=== PATIENT | male | born 1960 | race Asian ===

== ENCOUNTER 2018-03-31 20:25 | Emergency (ER) | payer MEDICARE ==
[~2018-03-31] VITALS: Ht 165.1 cm; Wt 72.1 kg
[2018-03-31 22:22] LABS: BASOPHILS # (AUTO) 0.1 K/uL (0.0-8.0); BASOPHILS % (AUTO) 0.8 % (0.0-2.0); EOSINOPHILS # (AUTO) 0.1 K/uL (0.0-0.7); EOSINOPHILS % (AUTO) 0.7 % (0.0-7.0); HEMATOCRIT 46.9 % (36.7-47.1); HEMOGLOBIN 16.1 g/dL (12.5-16.3); LYMPHOCYTES # (AUTO) 2.2 K/uL (20.0-40.0); LYMPHOCYTES % (AUTO) 24.1 % (20.5-51.5); MEAN CORPUSCULAR HEMOGLOBIN 32.7 uug (23.8-33.4); MEAN CORPUSCULAR HGB CONC 35 g/dL (32.5-36.3); MONOCYTES % (AUTO) 11.3 % (0.0-11.0); NEUTROPHILS # (AUTO) 5.7 K/uL (1.8-8.9); NEUTROPHILS % (AUTO) 63.1 % (38.5-71.5); PLATELET COUNT (AUTO) 170 K/uL (152-348); RED BLOOD CELL COUNT(AUTO) 4.94 MIL/uL (4.06-5.63)
[2018-03-31 22:30] LABS: CARBON DIOXIDE 24 mmol/L (21-32); CHLORIDE 107 mmol/L (98-107); CREATININE 1.3 mg/dL (0.6-1.3); GLUCOSE 131 mg/dL (74-106); POTASSIUM 3.6 mmol/L (3.5-5.1); UREA NITROGEN, BLOOD 20 mg/dL (7-18)
[2018-03-31 22:35] LABS: ALANINE AMINOTRANSFERASE 20 U/L (16-63); ALKALINE PHOSPHATASE 83 U/L (50-136); ASPARTATE AMINOTRANSFERASE 46 U/L (15-37); BILIRUBIN,DIRECT < 0.1 mg/dL (0.0-0.2); BILIRUBIN,TOTAL 0.7 mg/dL (0.2-1.0)
[2018-03-31 22:38] LABS: ETHANOL < 3 MG/DL (0-0)
[2018-03-31 22:56] LABS: ACETAMINOPHEN < 2.0 ug/mL (10-30)
[2018-03-31 23:05] LABS: THYROID STIMULATING HORMONE 4.296 mIU/mL (0.358-3.740)
--- NOTE | 2018-03-31 23:09 | NUR ---
Call placed to EULALIA Pickering, for PET evaluation.
--- NOTE | 2018-04-01 00:24 | NUR ---
EULALIA Pickering, at bedside for evaluation.
[2018-04-01 02:10] LABS: *BILIRUBIN,URIN NEGATIVE (NEGATIVE); *BLOOD, URINE 2+ (NEGATIVE); *COLOR,URINE AMBER (YELLOW); *KETONES,URINE NEGATIVE (NEGATIVE); *PROTEIN,URINE 3+ (NEGATIVE); *UROBILINOGEN,URINE 0.2 E.U./dl (NORMAL); LEUKOCYTE ESTERASE ,URINE NEGATIVE (NEGATIVE); NITRITE, URINE NEGATIVE (NEGATIVE); UGLUCOSE NEGATIVE (NEGATIVE)
[2018-04-01 02:20] LABS: *CLARITY,URINE HAZY (CLEAR)
[2018-04-01 02:23] LABS: BACTERIA,URINE NONE SEEN /HPF (NONE SEEN); MUCUS,URINE FEW /LPF (0-FEW); SQUAMOUS EPITHELIAL CELL,UR MODERATE /HPF (NONE SEEN); WBC,URINE 0-3 /HPF (0-3)
[2018-04-01 02:42] LABS: *AMPHETAMINE, URINE NEGATIVE (NEGATIVE); *BARBITURATE, URINE NEGATIVE (NEGATIVE); *CANNABINOID, URINE NEGATIVE (NEGATIVE); *COCCAINE, URINE NEGATIVE (NEGATIVE); *OPIATE, URINE NEGATIVE (NEGATIVE); *PHENCYCLIDINE SCREEN,URINE NEGATIVE (NEGATIVE)
--- NOTE | 2018-04-01 03:15 | NUR ---
Call received from [facility] at [facility], patient accepted by Dr. Dejesus.
--- NOTE | 2018-04-01 03:20 | NUR ---
Call placed to [facility] for transportation to [facility]. Trip #[id number], ETA 120 min.
--- NOTE | 2018-04-01 04:59 | NUR ---
Patient Tranfers to outside Facility Physician: Dr. Dejesus Location: [facility], Room #110A
== END 2018-04-01 05:01 | disposition short-term general hospital (02) ==
LOC: ER 20:30
DX: F31.9 Bipolar disorder, unspecified (principal); F19.10 Other psychoactive substance abuse, uncomplicated; I10 Essential (primary) hypertension; E78.00 Pure hypercholesterolemia, unspecified; E11.9 Type 2 diabetes mellitus without complications; Z59.0 Homelessness
CPT/HCPCS: 36415; 70030-TC; 70450; 71045; 80307; 83605; 84443; 85025; 85730; 87040; 87086; 93005; A4663; G0480; G0480-TC

== ENCOUNTER 2024-09-30 17:02 | Inpatient (IN) | payer MEDICARE, OTHER ==
[~2024-09-30] VITALS: Ht 165.1 cm; Wt 64.1 kg
[2024-09-30] MEDS ORDERED: ASPI81TA31 PO (17:25)
[2024-09-30] MEDS ORDERED: LORA-259 PO (17:25)
[2024-09-30] MEDS ORDERED: CALC600T35 PO (17:25)
[2024-09-30] MEDS ORDERED: DIVA500T54 PO (17:25)
[2024-09-30] MEDS ORDERED: METO-357 PO (17:25)
[2024-09-30] MEDS ORDERED: OLAN10TA3 PO (17:25)
[2024-09-30] MEDS ORDERED: ATOR40TA PO (17:25)
[2024-09-30] MEDS ORDERED: AMLO2.5T4 PO (17:25)
[2024-09-30] MEDS ORDERED: HYDR-501 PO (17:25)
[2024-09-30 17:49] LABS: BASOPHILS # (AUTO) 0.1 K/UL (0.0-0.2); BASOPHILS % (AUTO) 1.2 % (0.0-2.0); EOSINOPHILS # (AUTO) 0.1 K/uL (0.0-0.7); EOSINOPHILS % (AUTO) 1.6 % (0.0-7.0); HEMATOCRIT 40.8 % (36.7-47.1); HEMOGLOBIN 13.1 g/dL (12.5-16.3); LYMPHOCYTES # (AUTO) 3.7 K/uL (0.8-4.8); MEAN CORPUSCULAR HEMOGLOBIN 28.7 uug (23.8-33.4); MEAN CORPUSCULAR HGB CONC 32 g/dL (32.5-36.3); MEAN CORPUSCULAR VOLUME 89.2 fL (73.0-96.2); MONOCYTES # (AUTO) 0.8 K/uL (0.1-1.30); MONOCYTES % (AUTO) 10.5 % (0.0-11.0); NEUTROPHILS # (AUTO) 3.1 K/uL (1.8-8.9); NEUTROPHILS % (AUTO) 39.7 % (38.5-71.5); PLATELET COUNT (AUTO) 165 K/uL (152-348); RED BLOOD CELL COUNT(AUTO) 4.57 MIL/uL (4.06-5.63); WHITE BLOOD COUNT (AUTO) 7.9 K/uL (3.6-10.2)
[2024-09-30 17:51] LABS: DIFFERENTIAL COMMENT 1
[2024-09-30 18:02] LABS: AMMONIA < 10 umol/L (11-32)
[2024-09-30 18:04] LABS: CALCIUM 9.3 mg/dL (8.5-10.1); CARBON DIOXIDE 26 mmol/L (21-32); CHLORIDE 113 mmol/L (98-107); CREATININE 1.3 mg/dL (0.6-1.3); GLUCOSE 89 mg/dL (74-106); POTASSIUM 4.7 mmol/L (3.5-5.1); SODIUM SERUM 149 mmol/L (136-145); UREA NITROGEN, BLOOD 22 mg/dL (7-18)
[2024-09-30 18:10] LABS: ACETAMINOPHEN < 2.0 ug/mL (10-30); ALANINE AMINOTRANSFERASE 57 U/L (16-63); ALBUMIN 3.4 g/dL (3.4-5.0); ALKALINE PHOSPHATASE 93 U/L (50-136); ASPARTATE AMINOTRANSFERASE 69 U/L (15-37); BILIRUBIN,DIRECT 0.2 mg/dL (0.0-0.2); BILIRUBIN,TOTAL 0.4 mg/dL (0.2-1.0); TOTAL PROTEIN, SERUM 8.2 g/dL (6.4-8.2)
[2024-09-30 18:10] LABS: *BILIRUBIN,URIN NEGATIVE (NEGATIVE); *BLOOD, URINE NEGATIVE (NEGATIVE); *CLARITY,URINE CLEAR (CLEAR); *COLOR,URINE YELLOW (YELLOW); *KETONES,URINE NEGATIVE (NEGATIVE); *PROTEIN,URINE NEGATIVE (NEGATIVE); *UROBILINOGEN,URINE 0.2 E.U./dl (NORMAL); LEUKOCYTE ESTERASE ,URINE NEGATIVE (NEGATIVE); NITRITE, URINE NEGATIVE (NEGATIVE); UGLUCOSE NEGATIVE (NEGATIVE)
[2024-09-30 18:15] LABS: ETHANOL < 3 MG/DL (0-10); THYROID STIMULATING HORMONE 1.264 mIU/mL (0.358-3.740)
[2024-09-30 18:17] LABS: *AMPHETAMINE, URINE NEGATIVE (NEGATIVE); *BARBITURATE, URINE NEGATIVE (NEGATIVE); *BENZODIAZEPINE, URINE NEGATIVE (NEGATIVE); *CANNABINOID, URINE NEGATIVE (NEGATIVE); *COCCAINE, URINE NEGATIVE (NEGATIVE); *OPIATE, URINE NEGATIVE (NEGATIVE); *PHENCYCLIDINE SCREEN,URINE NEGATIVE (NEGATIVE); FENTANYL, URINE NEGATIVE (NEGATIVE)
[2024-09-30] MEDS ORDERED: DOXYCYCLINE HYCLATE 100 MG TABLET ONE (20:34)
[2024-09-30] MEDS ORDERED: AMOXICILLIN-CLAVUL 875-125MG TABLET ONE (20:34)
[2024-09-30] MEDS: AMOXICILLIN-CLAVUL 875-125MG TABLET PO ONE (20:38)
[2024-09-30] MEDS: DOXYCYCLINE HYCLATE 100 MG TABLET PO ONE (20:39)
[2024-09-30] MEDS ORDERED: LORAZEPAM 1 MG TABLET ONE (21:05)
[2024-09-30] MEDS ORDERED: OLANZAPINE 5 MG TABLET ONE (21:06)
[2024-09-30] MEDS: LORAZEPAM 0.5 MG TABLET PO ONE (21:08)
[2024-09-30] MEDS: OLANZAPINE 5 MG TABLET PO ONE (21:08)
[2024-10-01] MEDS ORDERED: ONDANSETRON 4 MG/2 ML VIAL IV PRN (00:15)
[2024-10-01] MEDS ORDERED: ZOLPIDEM 5 MG TABLET PO PRN (00:15)
[2024-10-01] MEDS ORDERED: MAGNESIUM HYDROXIDE 30 ML LIQUID UDC PO PRN (00:15)
[2024-10-01] MEDS ORDERED: ACETAMINOPHEN 325 MG TABLET PO PRN (00:15)
[2024-10-01] MEDS ORDERED: hydrOXYzine HCL 25 MG TABLET PO PRN (00:30)
[2024-10-01] MEDS ORDERED: LORAZEPAM 1 MG TABLET PO PRN (00:30)
[2024-10-01 01:20] VITALS: BP 101/68; TEMP 97.7; O2SAT 96
[2024-10-01] MEDS: IV 1/2NS 1000 ML 1,000 ML IV SCH (01:42)
[2024-10-01 04:00] VITALS: BP 98/64; TEMP 98.5; O2SAT 98
[2024-10-01 07:46] VITALS: BP 111/77; TEMP 98.9; O2SAT 100
[2024-10-01] MEDS: CALCIUM CARBONATE 600 MG TABLET PO SCH (10:20)
[2024-10-01] MEDS: PANTOPRAZOLE SODIUM 40 MG VIAL IV SCH (10:20)
[2024-10-01] MEDS: DIVALPROEX ER 500 MG TAB.SR.24H PO SCH (10:20)
[2024-10-01] MEDS: AMOXICILLIN-CLAVUL 875-125MG TABLET PO SCH (10:20)
[2024-10-01] MEDS: METOPROLOL SUCCINATE XL 50 MG TAB.SR.24H PO SCH (10:21)
[2024-10-01] MEDS: ASPIRIN 81 MG TAB.CHEW PO SCH (10:21)
[2024-10-01] MEDS: AMLODIPINE 2.5 MG TABLET PO SCH (10:21)
[2024-10-01] MEDS: DOXYCYCLINE HYCLATE 100 MG TABLET PO SCH (10:21)
[2024-10-01 11:19] VITALS: BP 120/88; TEMP 98.3; O2SAT 100
[2024-10-01] MEDS ORDERED: ACET325T53 PO (11:42)
[2024-10-01] MEDS ORDERED: ACET-73 PO (11:44)
[2024-10-01] MEDS ORDERED: ALBU8.5H8 INH (11:46)
[2024-10-01] MEDS ORDERED: BISA10SU61 RC (11:48)
[2024-10-01] MEDS ORDERED: NA P133E RC (11:51)
[2024-10-01] MEDS ORDERED: HYDR-501 PO (11:52)
[2024-10-01] MEDS ORDERED: MAGN400O6 PO (11:55)
[2024-10-01] MEDS ORDERED: POLY250017 PO (11:56)
[2024-10-01] MEDS: IPRATROPIUM BROMIDE 0.5 MG/2.5 ML NEBU NEB SCH (13:40)
[2024-10-01 13:41] VITALS: O2SAT 97
[2024-10-01] MEDS: ALBUTEROL SULFATE 2.5 MG/3 ML NEBU NEB SCH (13:41)
[2024-10-01 13:51] VITALS: O2SAT 99
[2024-10-01] MEDS ORDERED: OLANZAPINE 5 MG TABLET PO SCH (18:00)
[2024-10-01] MEDS ORDERED: ATORVASTATIN 40 MG TABLET PO SCH (21:00)
== END 2024-10-01 15:45 | DRG 194 ==
LOC: ER 17:49 → GPS 18:00 → MEDSURG3 10-01 00:18 → TELE3 10-01 01:33
PROVIDERS: ATTEND Nurse Practitioner Family
DX: J15.9 Unspecified bacterial pneumonia (principal); E87.0 Hyperosmolality and hypernatremia; J44.0 Chronic obstructive pulmonary disease with (acute) lower respiratory infection; J91.8 Pleural effusion in other conditions classified elsewhere; F31.5 Bipolar disorder, current episode depressed, severe, with psychotic features; J45.901 Unspecified asthma with (acute) exacerbation; F03.911 Unspecified dementia, unspecified severity, with agitation; F03.94 Unspecified dementia, unspecified severity, with anxiety; E86.0 Dehydration; F15.10 Other stimulant abuse, uncomplicated; I13.10 Hypertensive heart and chronic kidney disease without heart failure, with stage 1 through stage 4 chronic kidney disease, or unspecified chronic kidney disease; E11.22 Type 2 diabetes mellitus with diabetic chronic kidney disease; N18.9 Chronic kidney disease, unspecified; Z79.899 Other long term (current) drug therapy; Z79.82 Long term (current) use of aspirin; I25.10 Atherosclerotic heart disease of native coronary artery without angina pectoris; I25.5 Ischemic cardiomyopathy; F17.210 Nicotine dependence, cigarettes, uncomplicated; R79.89 Other specified abnormal findings of blood chemistry; G47.30 Sleep apnea, unspecified; K21.9 Gastro-esophageal reflux disease without esophagitis; M15.9 Polyosteoarthritis, unspecified; F15.11 Other stimulant abuse, in remission; G47.00 Insomnia, unspecified; N40.0 Benign prostatic hyperplasia without lower urinary tract symptoms; Y95 Nosocomial condition; Z66 Do not resuscitate; E78.5 Hyperlipidemia, unspecified; E03.9 Hypothyroidism, unspecified
CPT/HCPCS: 36415; 70450; 71045; 71250; 84443; 84484; 85025; 85730; 86140; 87086; 94640; 94760; A4606; A4663; G0480; J2470; J3590